=== PATIENT | male | born 1955 | race Caucasian/White ===

== ENCOUNTER 2020-03-26 21:07 | Emergency (ER) | payer BC ==
[~2020-03-26] VITALS: Ht 182.9 cm; Wt 87.3 kg
--- NOTE | 2020-03-26 21:15 | PHYS DOC ---
General Adult EDM: Chief Complaint: ANIMAL BITE HPI: HPI: ".. I was cleaning a bunch of cat fish yesterday.. and one got me good.. in this Lt had.. I got 3 punctures.. did not think much about it... but after mowing the yard today.. my hand was more swollen.. and hurts.. I probably need a tetanus and some kind of antibiotic...." Patient is a 64 year old male who presents with above hx of cat fish punctures to left palm from the dorsal fin. Patient has obvious 3 puncture damico. There is some mild swelling of the palm. Distal neuro vascular intact but is painful with him to make a fist. Cap refill is equal to right hand. Patient is right- hand dominant. Patient does not remember his last tetanus. Normally follows Dr. Modi for hypertension issues. No history of travel. No history of ill contacts. Denies any history of immunosuppression. Review of Systems: Review of Systems: Constitutional: Denies fever or chills Eyes: Denies change in visual acuity HENT: Denies nasal congestion or sore throat Respiratory: Denies cough or shortness of breath Cardiovascular: Denies chest pain or edema GI: Denies abdominal pain, nausea, vomiting, bloody stools or diarrhea : Denies dysuria Musculoskeletal: Denies back pain or joint pain Integument: Denies rash. Complains of puncture wound to left palm Neurologic: Denies headache, focal weakness or sensory changes Endocrine: Denies polyuria or polydipsia Lymphatic: Denies swollen glands Psychiatric: Denies depression or anxiety Heart Score: Risk Factors: Risk Factors: DM, Current or recent (<one month) smoker, HTN, HLP, family history of CAD, obesity. Risk Scores: Score 0 - 3: 2.5% MACE over next 6 weeks - Discharge Home Score 4 - 6: 20.3% MACE over next 6 weeks - Admit for Clinical Observation Score 7 - 10: 72.7% MACE over next 6 weeks - Early Invasive Strategies Family History: Family History: Noncontributory Current Medications: Current Meds: See nursing for home meds Allergies: Allergies: No known drug allergies Physical Exam: PE: Constitutional: no acute distress, non-toxic appearance. [] HENT: Normocephalic, atraumatic, bilateral external ears normal, oropharynx moist, no oral exudates, nose normal. [] Eyes: PERRLA, EOMI, conjunctiva normal, no discharge. [] Neck: Normal range of motion, no tenderness, supple, no stridor. [] Cardiovascular:Heart rate regular rhythm, no murmur [] Lungs & Thorax: Bilateral breath sounds equal apex with auscultation [] Abdomen: Bowel sounds normal, soft, no tenderness, no masses, no pulsatile masses. [] Skin: Warm, dry, no erythema, no rash. [] Back: No tenderness, no CVA tenderness. [] Extremities: No tenderness, no cyanosis, no clubbing, ROM intact, no edema. [] Except findings in left hand as per HPI Neurologic: Alert and oriented X 3, normal motor function, normal sensory function, no focal deficits noted. [] Psychologic: Affect anxious, judgement normal, mood normal. [] EKG: EKG: [] Radiology/Procedures: Radiology/Procedures: [][place] [id number] IMAGING REPORT Signed PATIENT: KAMRON AVELAR ACCOUNT: [id number] : 1955 LOCATION: ER AGE: 64 SEX: M EXAM STATUS: REG ER ORD. PHYSICIAN: AMMY PARK MD REASON: cat fish puncture, 5TH METACARPAL PROCEDURE: HAND LEFT 3V HAND LEFT 3V History: Reason: cat fish puncture, 5TH METACARPAL / Spl. Instructions: / History: Technique: 3 views left hand. Comparison: None. Findings: Normal alignment. No fracture. Linear density projecting over the volar aspect of the hand on lateral view measures 1.1 cm. Ulnar hand soft tissue swelling. Mild polyarticular degenerative changes most prominent within the distal interphalangeal joints. Impression: 1. No acute osseous abnormality. 2. Vague linear density projecting over the volar aspect of the hand, may represent summation artifact. Recommend clinical correlation for foreign body. Electronically signed by: Garry Olsen DO (03/26/2020 10:14 PM) [facility] DICTATED AND SIGNED BY: GARRY OLSEN DO DATE: 03/26/20 [id number] CC: AMMY PARK MD; COBY MODI DO ~ Course & Med Decision Making: Course & Med Decision Making Pertinent Labs and Imaging studies reviewed. (See chart for details) Patient to soak and very warm salt or Epson salt water 4 times a day. Massage and Polysporin afterwards. Patient take Augmentin 875 twice a day. Patient to monitor for increasing infection swelling or pain. Follow-up primary care. Return if any concerns. Impression- 1. Puncture wound from dorsal fin of catfish [] Dragon Disclaimer: Elizabeth Disclaimer: This electronic medical record was generated, in whole or in part, using a voice recognition dictation system. Departure Departure: Disposition: HOME/RESIDENCE PRIOR TO ADM Condition: STABLE Referrals: COBY MODI DO (PCP) Scripts Amoxicillin/Potassium Clav (AUGMENTIN 875-125 TABLET) 1 Each Tablet 1 TAB PO BID for puncture for 7 Days, #14 TAB 0 Refills Prov: AMMY PARK MD 03/26/20 Justification of Admission: Justification of Admission: Justification of Admission Dx: N/A [place] Disclaimer This chart was dictated in whole or in part using Voice Recognition software in a busy, high-work load, and often noisy Emergency Department environment. It may contain unintended and wholly unrecognized errors or omissions. AMMY PARK MD Mar 26, 2020 21:15
[2020-03-26 21:23] VITALS: BP 157/87
[2020-03-26] MEDS ORDERED: AMOX1TAB61 PO (21:28)
[2020-03-26] MEDS ORDERED: DIPH,PERTUSS(ACELL),TET VAC/PF 0.5 ML SYRINGE. VAX IM ONE (21:30)
[2020-03-26] MEDS ORDERED: cefTRIAXone SODIUM 1 GM VIAL ONE (21:30)
[2020-03-26] MEDS ORDERED: cefTRIAXone IM 1 GM VIAL IM ONE (21:30)
--- NOTE | 2020-03-26 22:17 | RAD ---
HAND LEFT 3V History: Reason: cat fish puncture, 5TH METACARPAL / Spl. Instructions: / History: Technique: 3 views left hand. Comparison: None. Findings: Normal alignment. No fracture. Linear density projecting over the volar aspect of the hand on lateral view measures 1.1 cm. Ulnar hand soft tissue swelling. Mild polyarticular degenerative changes most prominent within the distal interphalangeal joints. Impression: 1. No acute osseous abnormality. 2. Vague linear density projecting over the volar aspect of the hand, may represent summation artifact. Recommend clinical correlation for foreign body. Electronically signed by: Garry Olsen DO (03/26/2020 10:14 PM) [facility]
== END 2020-03-26 22:30 | disposition home or self-care (01) ==
LOC: ER 21:07
DX: S61.432A Puncture wound without foreign body of left hand, initial encounter (principal); W56.52XA Struck by other fish, initial encounter; Y93.G9 Activity, other involving cooking and grilling; Y92.89 Other specified places as the place of occurrence of the external cause; Y99.8 Other external cause status
CPT/HCPCS: 73130; 90471; 90715; 96372; 99284; J0696